=== PATIENT | female | born 1940 | race Caucasian/White ===

== ENCOUNTER 2020-05-02 10:28 | Outpatient (CLI) | payer MEDICARE, SELFPAY ==
--- NOTE | 2020-05-02 10:31 | ECG_ITS ---
Measurements Intervals [place] Rate: 80 P: 40 MS: 148 QRS: 2 QRSD: 91 T: 7 QT: 356 QTc: 412 Interpretive Statements SINUS RHYTHM BORDERLINE ST-T WAVE ABNORMALITY- INFERIOR LEADS BASELINE ARTIFACT- I, II, III, AVR, AVL, AVF, V4-V6 BORDERLINE ECG Electronically Signed On 05-02-2020 11:00:27 MECHANIC by Raleigh Ocampo D.O.
== END 2020-05-02 10:29 | disposition home or self-care (01) ==
PROVIDERS: PCP Internal Medicine; Visit Provider Urology
DX: Z01.818 Encounter for other preprocedural examination (principal); I10 Essential (primary) hypertension; R94.31 Abnormal electrocardiogram [ECG] [EKG]
CPT/HCPCS: 93005

== ENCOUNTER 2020-05-03 02:10 | Outpatient (CLI) | payer MEDICARE, SELFPAY ==
[2020-05-03 19:16] LABS: SARS-CoV-2 RNA PCR Negative
== END 2020-05-03 02:11 | disposition home or self-care (01) ==
LOC: ANHCOVIDDT 02:11
PROVIDERS: PCP Internal Medicine; Visit Provider Urology
DX: Z12.31 Encounter for screening mammogram for malignant neoplasm of breast (principal); Z20.828 Contact with and (suspected) exposure to other viral communicable diseases
CPT/HCPCS: 87635; C9803; U0003

== ENCOUNTER 2020-05-06 01:02 | Day surgery (SDC) | payer MEDICARE, SELFPAY ==
[2020-04-25 13:17] VITALS: BMI 28.1
--- NOTE | 2020-04-29 07:50 | P.HP_ITS ---
H&P: HPI History of Present Illness Date/Time: 04/29/20 07:50 Chief complaint: Overactive Bladder Narrative: Vanessa Tirado is a 80 year old female with OAB who comes in for a trial of SNS Review of Systems Review of Systems: All systems reviewed & are unremarkable except as noted in HPI and below PMFSH Social History Social History Smoking status: Never smoker Alcohol intake: current Substance use: never Spiritual care concerns: No Meds Home Medications and Allergies Home Medications Medication Instructions Recorded Confirmed Type amlodipine 5 mg QAM 04/25/20 04/25/20 History aspirin [Aspirin Low Dose] 81 mg PO BID 04/25/20 04/25/20 History calcium tnf-aoq-V9-Zn-supervisor blueprinting and photocopy-yuriy 1 tablet PO BID 04/25/20 04/25/20 History [Calcium Citrate Plus] cholecalciferol (vitamin D3) 25 mcg PO BID 04/25/20 04/25/20 History estradiol 0.1 g VAGINAL PRN PRN 04/25/20 04/25/20 History fluticasone propionate 1 spray INTRANASAL QAM 04/25/20 04/25/20 History losartan 50 mg QAM 04/25/20 04/25/20 History melatonin 10 mg PO HS 04/25/20 04/25/20 History metoprolol succinate 25 mg PO QAM 04/25/20 04/25/20 History xofpazsmhaza-dbffeizd-qzkeaq 1 tablet QAM 04/25/20 04/25/20 History [Multivitamin 50 Plus] rosuvastatin 20 mg QMWF 04/25/20 04/25/20 History Allergies Allergy/AdvReac Type Severity Reaction Status Date / Time levofloxacin [From Levaquin] AdvReac Nausea and Verified 04/25/20 13:07 Vomiting oxycodone AdvReac Nausea and Verified 04/25/20 13:07 Vomiting Exam Const: General: cooperative and healthy appearing HENMT: Head: normal to inspection Eyes: General: appearance normal, both eyes and all related structures Resp: Effort & Inspection: normal respiratory effort and able to speak in complete sentences GI: Inspection: normal to inspection Skin: General skin exam: normal color Neuro: General: patient oriented x3 Assessment and Plan Assessment and plan (1) Overactive bladder: Code(s): N32.81 - Overactive bladder Status: Acute Assessment and Plan: Stage 1 trial of SNS. Stage 2 in two weeks
--- NOTE | ~2020-05-06 | XR_ITS ---
XR fl neurostim insert<1hr 05/06/2020 08:30 Indication: Stimulator lead placement Procedure: 2 fluoroscopic images of the pelvis. 121 seconds of fluoroscopy. Comparison: No prior studies for comparison. Findings: Neural stimulator lead is identified extending into the pelvis via left transsacral approac h. Lead appears intact. Impression: 1: Neural stimulator lead extending into the pelvis via left transsacral approach. Reviewed, dictated and finalized at location [facility] Impression: 1: Neural stimulator lead extending into the pelvis via left transsacral approa .
[2020-05-06 06:11] VITALS: BP 173/80; PULSE 85; RESP 16; TEMP 36; O2SAT 98
[2020-05-06] MEDS: LACTATED RINGERS 1,000 ML 30 ML IV CONT (06:15)
--- NOTE | 2020-05-06 07:02 | P.PNAN_ITS ---
Anes - Initial Pre Proc Eval Procedure: Operation Date: 05/06/20 07:30 Proposed Procedures p Interstim Phase One - Peter Pena MD Date/Time: 05/06/20 07:02 Surgeon: Peter Pena MD Pre Op Diagnosis: Overactive Bladder Patient Data Age: 80 Gender: F Height: 5 ft 2.5 in Weight: 72.7 kg Last Vital Signs Temp 96.8 F L 05/06/20 06:11 Pulse 85 05/06/20 06:11 Resp 16 05/06/20 06:11 BP 173/80 H 05/06/20 06:11 Pulse Ox 98 05/06/20 06:11 Allergies Allergy/AdvReac Type Severity Reaction Status Date / Time levofloxacin [From Levaquin] AdvReac Intermediate Nausea and Verified 05/06/20 06:01 Vomiting oxycodone AdvReac Intermediate Nausea and Verified 05/06/20 06:01 Vomiting Home Medications Medication Instructions Recorded Confirmed Type amlodipine 5 mg QAM 04/25/20 05/06/20 History aspirin [Aspirin Low Dose] 81 mg PO BID 04/25/20 05/06/20 History calcium kgb-lgi-U3-Zn-endoscope technician-yuriy 1 tablet PO BID 04/25/20 05/06/20 History [Calcium Citrate Plus] cholecalciferol (vitamin D3) 25 mcg PO BID 04/25/20 05/06/20 History estradiol 0.1 g VAGINAL PRN PRN 04/25/20 05/06/20 History fluticasone propionate 1 spray INTRANASAL QAM 04/25/20 05/06/20 History losartan 50 mg QAM 04/25/20 05/06/20 History melatonin 10 mg PO HS 04/25/20 05/06/20 History metoprolol succinate 25 mg PO QAM 04/25/20 05/06/20 History ktyzrgjcazrv-wuauznjp-gyllxy 1 tablet QAM 04/25/20 05/06/20 History [Multivitamin 50 Plus] rosuvastatin 20 mg QMWF 04/25/20 05/06/20 History Patient hx anesthesia problems: post op nausea/vomiting Family hx anesthesia problems: none PMFSH Past Medical History Medical History (Updated 05/05/20 @ 14:38 by Nicolas Calvillo MD) Hyperlipidemia Hypertension Social History Social History Smoking status: Never smoker Alcohol intake: current Alcohol use details: STATES MAYBE 1 DRINK IN LAST 6 MONTHS Substance use: never Living arrangements: with family Spiritual care concerns: No Anes - Eval Final PreProcedure Day of Procedure 05/06/20 07:02 Patient weight: overweight Heart: regular rate and rhythm Lungs: clear to auscultation Airway: Mallampati scale class II Neurological: alert and oriented Last oral intake: >/= 8 hours ASA classification: III Emergent: no Anesthetic plan: proceed Anesthesia type and monitoring: general GIVS and standard monitoring Informed Consent: The patient's anesthetic plan and its attendant risks and benefits were discussed with the patient/family/POA. Questions were solicited and answers provided to the satisfaction of the patient/family/POA.
[2020-05-06] MEDS: ONDANSETRON INJ 4 MG/2 ML VIAL IV PUSH (07:12)
--- NOTE | 2020-05-06 07:19 | WPDHPUPDATE1 ---
History and Physical Update Update Date/Time: 05/06/20 07:19 History and Physical has been reviewed, including an updated exam of the patient. There are NO changes in the patient's condition. Risks, benefits, and alternatives have been discussed and questions answered. Patient agrees to proceed with procedure.
[2020-05-06] MEDS: ceFAZolin 2 GM/D5W 50 ML 2 GM/50 ML BAG IVPB (07:32)
[2020-05-06] MEDS: KETOROLAC 30 MG/ML VIAL (*BKC) 15 MG IM (08:21)
[2020-05-06 08:28] VITALS: BP 118/67; PULSE 82; RESP 14; O2SAT 100
--- NOTE | 2020-05-06 08:38 | PM.PROC ---
Procedure Note - Detailed Date of procedure: 05/06/20 Pre-op diagnosis: Overactive Bladder Post-op diagnosis: same Procedure performed: Stage I InterStim trial Description of procedure: She was correctly identified and informed consent obtained. She from the operating room. She was given mac anesthesia. She was placed in a prone position. Lower back and buttock were prepped and draped in a sterile fashion. Time-out was performed. She was given appropriate perioperative antibiotics. I marked out my sacral landmarks in the AP and lateral orientation. I anesthetized the skin. I entered the S3 foramen on the patient's right and left. I monitored the needle fluoroscopy. I stimulated the needle and got appropriate responses the low threshold. I made a skin iraj. I placed a stylet. I placed lead to do so sheath. I then placed the plate my lead ago. I again did this under fluoroscopy. The lead was stimulated with appropriate responses. I marked out the site of the future pulse generator. I anesthetized the skin. I tunneled the lead extension wire to the contralateral side of the back. I then tunneled the lead towards the incision. Appropriate connections were made. The lead extension and hub was placed in subcutaneous pocket. Wounds were irrigated. Subcu tissues were closed the 2 0 Vicryl. Skin was closed with 4 0 Vicryl. Glue and a dressing were applied. She was awakened and transferred to the PACU in stable condition. Anesthesia: MAC Surgeon: Peter Pena MD Drains: No Packing: No Pathology: none sent Complications: No immediate complications Condition: stable Disposition: PACU
[2020-05-06 08:50] VITALS: BP 133/66; PULSE 68; RESP 16
--- NOTE | 2020-05-06 08:52 | SUR.PHASEII ---
0850 - rep in room with pt
[2020-05-06 09:20] VITALS: BP 141/76; PULSE 73; RESP 20
== END 2020-05-06 09:30 | disposition home or self-care (01) ==
PROVIDERS: PCP Internal Medicine; Visit Provider Urology
PROC: (CPT 64561; principal; 2020-05-06 07:30)
DX: N32.81 Overactive bladder (principal); I10 Essential (primary) hypertension; E78.5 Hyperlipidemia, unspecified; Z79.82 Long term (current) use of aspirin
CPT/HCPCS: 64561; A9270; C1778; J0690; J1885; J2250; J2405; J2704; J7120

== ENCOUNTER 2020-05-17 02:08 | Outpatient (CLI) | payer MEDICARE, SELFPAY ==
[2020-05-17 22:42] LABS: SARS-CoV-2 RNA PCR Negative
== END 2020-05-17 02:09 | disposition home or self-care (01) ==
LOC: ANHCOVIDDT 02:09
PROVIDERS: PCP Internal Medicine; Visit Provider Urology
DX: Z01.818 Encounter for other preprocedural examination (principal); Z20.828 Contact with and (suspected) exposure to other viral communicable diseases
CPT/HCPCS: 87635; C9803; U0003

== ENCOUNTER 2020-05-20 00:42 | Day surgery (SDC) | payer MEDICARE, SELFPAY ==
[2020-05-09 10:15] VITALS: BMI 28.4
--- NOTE | 2020-05-17 21:14 | PM.IMHP ---
H&P: HPI History of Present Illness Date/Time: 05/17/20 21:14 Cheif Complaint: OAB Narrative: Vanessa Tirado is a 80 year old female. Successful InterStim trial. Here for permanent IPG Review of Systems Review of Systems: All systems reviewed & are unremarkable except as noted in HPI and below PMFSH Past Medical History Medical History (Updated 05/17/20 @ 21:15 by Peter Pena MD) Hyperlipidemia Hypertension Overactive bladder Social History Social History Smoking status: Never smoker Alcohol intake: current Substance use: never Spiritual care concerns: No Meds Home Medications and Allergies Home Medications Medication Instructions Recorded Confirmed Type Calcium Citrate Plus 1 tablet PO BID 04/25/20 05/09/20 History Multivitamin 50 Plus 1 tablet PO QAM 04/25/20 05/09/20 History amlodipine 5 mg PO QAM 04/25/20 05/09/20 History aspirin [Aspirin Low Dose] 81 mg PO BID 04/25/20 05/09/20 History cholecalciferol (vitamin D3) 25 mcg PO BID 04/25/20 05/09/20 History estradiol 0.1 g VAGINAL PRN PRN 04/25/20 05/09/20 History fluticasone propionate 1 spray INTRANASAL QAM 04/25/20 05/09/20 History losartan 50 mg PO QAM 04/25/20 05/09/20 History melatonin 10 mg PO HS 04/25/20 05/09/20 History metoprolol succinate 25 mg PO QAM 04/25/20 05/09/20 History rosuvastatin 20 mg PO QMWF 04/25/20 05/09/20 History Allergies Allergy/AdvReac Type Severity Reaction Status Date / Time levofloxacin [From Levaquin] AdvReac Intermediate Nausea and Verified 05/09/20 09:56 Vomiting oxycodone AdvReac Intermediate Nausea and Verified 05/09/20 09:56 Vomiting tramadol AdvReac Weakness, Verified 05/09/20 09:57 GI UPSET Exam Const: General: cooperative and healthy appearing HENMT: Head: normal to inspection Mouth: Yes Normal oral and palatal mucosa present Resp: Effort & Inspection: normal respiratory effort and able to speak in complete sentences Skin: General skin exam: normal color Neuro: General: patient oriented x3 Assessment and Plan Assessment and plan (1) Overactive bladder: Code(s): N32.81 - Overactive bladder Status: Acute Assessment and Plan: stage 2 InterStim[address] Placement of IPG
--- NOTE | 2020-05-19 09:41 | WPDANESEPPF ---
Anes - Initial Pre Proc Eval Procedure: Operation Date: 05/20/20 07:30 Proposed Procedures p Interstim Phase Two - Peter Pena MD Date/Time: 05/19/20 09:41 Surgeon: Peter Pena MD Pre Op Diagnosis: Overactive Bladder Patient Data Age: 80 Gender: F Height: 1.59 m Weight: 71.7 kg Allergies Allergy/AdvReac Type Severity Reaction Status Date / Time levofloxacin [From Levaquin] AdvReac Mild Nausea and Verified 05/20/20 06:29 Vomiting oxycodone AdvReac Mild Nausea and Verified 05/20/20 06:29 Vomiting/ FEEL LIKE I AM GOING TO PASS OUT tramadol AdvReac Mild HOT, Verified 05/20/20 06:29 FLUSHED,FEEL LIKE I AM GOING TO PASS OUT Home Medications Medication Instructions Recorded Confirmed Type Calcium Citrate Plus 1 tablet PO BID 04/25/20 05/20/20 History Multivitamin 50 Plus 1 tablet PO QAM 04/25/20 05/20/20 History amlodipine 5 mg PO QAM 04/25/20 05/20/20 History aspirin [Aspirin Low Dose] 81 mg PO BID 04/25/20 05/20/20 History cholecalciferol (vitamin D3) 25 mcg PO BID 04/25/20 05/20/20 History estradiol 0.1 g VAGINAL PRN PRN 04/25/20 05/20/20 History fluticasone propionate 1 spray INTRANASAL QAM 04/25/20 05/20/20 History losartan 50 mg PO QAM 04/25/20 05/20/20 History melatonin 10 mg PO HS 04/25/20 05/20/20 History metoprolol succinate 25 mg PO QAM 04/25/20 05/20/20 History rosuvastatin 20 mg PO QMWF 04/25/20 05/20/20 History Patient hx anesthesia problems: none Family hx anesthesia problems: none PMFSH Past Medical History Medical History (Updated 05/17/20 @ 21:15 by Peter Pena MD) Hyperlipidemia Hypertension Overactive bladder Surgical History Surgical History (Updated 05/19/20 @ 09:42 by Fortunato Bustos DO) History of tubal ligation Social History Social History Smoking status: Never smoker Alcohol intake: current Substance use: never Living arrangements: with family Spiritual care concerns: No Anes - Eval Final PreProcedure Day of Procedure 05/19/20 09:41 Patient weight: overweight Heart: regular rate and rhythm Lungs: clear to auscultation and normal air movement Airway: Mallampati scale class 1 Neurological: alert and oriented Last oral intake: >/= 8 hours ASA classification: III Emergent: no Anesthetic plan: proceed Anesthesia type and monitoring: general GIVS and standard monitoring Informed Consent: The patient's anesthetic plan and its attendant risks and benefits were discussed with the patient/family/POA. Questions were solicited and answers provided to the satisfaction of the patient/family/POA.
[2020-05-20 06:04] VITALS: BP 153/71; PULSE 77; RESP 16; O2SAT 100
[2020-05-20] MEDS: LACTATED RINGERS 1,000 ML 30 ML IV CONT (06:45)
--- NOTE | 2020-05-20 06:52 | SUR.PREOP ---
0640-PT UP TO BATHROOM TO VOID.
--- NOTE | 2020-05-20 07:23 | WPDHPUPDATE1 ---
History and Physical Update Update Date/Time: 05/20/20 07:23 History and Physical has been reviewed, including an updated exam of the patient. There are NO changes in the patient's condition. Risks, benefits, and alternatives have been discussed and questions answered. Patient agrees to proceed with procedure.
[2020-05-20] MEDS: ceFAZolin 2 GM/D5W 50 ML 2 GM/50 ML BAG IVPB (07:30)
[2020-05-20] MEDS: BUPIVACAINE/EPINEPHRINE 0.25% 10 ML VIAL 30 ML INFILTRATE (07:44)
[2020-05-20 07:57] VITALS: BP 130/67; PULSE 78; RESP 16; O2SAT 100
--- NOTE | 2020-05-20 07:58 | PM.PROC ---
Procedure Note - Detailed Date of procedure: 05/20/20 Pre-op diagnosis: Overactive Bladder Post-op diagnosis: same Procedure performed: placement of pulse generator, complex neurostimulator programming and impedance check [id number], [id number] Description of procedure: She is correctly identified informed consent obtained. Some of the operating room. She was given mac anesthesia. She was placed in the prone position. Lower back and buttock were prepped and draped in sterile fashion. The skin was anesthetized. Made incision over the connection hub. I located the connection hub. I cut and removed lead extension wire. I then made a subcutaneous pocket. I obtained hemostasis. I connected the lead towards the generator. He was placed in the pocket. Impedances were checked and found to be normal. I irrigated out all wounds. Close the subcu with 2 Vicryl. Skin skin with 4 Vicryl. Glue was applied. She was awakened and transferred the PACU in stable condition. Implants: [employer] InterStim II Anesthesia: MAC and local Surgeon: Peter Pena MD Estimated blood loss (mL): 1 Packing: No Pathology: none sent Complications: No immediate complications Condition: stable Disposition: PACU
[2020-05-20 08:20] VITALS: BP 130/68; PULSE 76; RESP 16; O2SAT 98
--- NOTE | 2020-05-20 08:20 | SUR.PHASEII ---
FRAN SHAW SPEAKING WITH PTVianey
[2020-05-20 08:45] VITALS: BP 136/51; PULSE 77; RESP 16
== END 2020-05-20 08:55 | disposition home or self-care (01) ==
PROVIDERS: PCP Internal Medicine; Visit Provider Urology
PROC: (CPT 64590; principal; 2020-05-20 07:30)
DX: N32.81 Overactive bladder (principal); E78.5 Hyperlipidemia, unspecified; I10 Essential (primary) hypertension; Z79.82 Long term (current) use of aspirin
CPT/HCPCS: 64590; C1767; C1787; J0690; J2250; J2405; J2704; J3010; J7120